=== PATIENT | male | born 1935 | race Caucasian/White ===

== ENCOUNTER → 2018-10-03 | Outpatient (CLI) | payer OTHER ==
--- NOTE | 2018-10-03 10:47 | 2DMMODE ---
[facility] [place] [address] 2 D/M-MODE ECHOCARDIOGRAM Name: AG LARSON Room #: REG [facility]#: [id number] ������������� Admission: 10/03/18 ������������� Attend Phys: Gideon Garay Discharge: ��� ������������� ��� Date of : 37 Date of Service: 10/03/18 1047 �� Report #: [id number] �������� ��������������������������������������������[id number] THIS REPORT FOR: //name// APPROVED REPORT Study performed: 10/03/2018 10:08:00 EXAM: Comprehensive 2D, Doppler, and color-flow Echocardiogram Patient Location: Out-Patient Status: routine BSA: 2.02 HR: 82 bpm BP: 166/83 mmHg Rhythm: Atrial Fibrillation Other Information Study Quality: AdequateGood Indications Murmur Atrial Fibrillation 2D Dimensions RVDd: 43.08 mm IVSd: 12.13 (7-11mm) LVOT Diam: 20.74 (18-24mm) LVDd: 45.02 mm PWd: 10.65 (7-11mm) Ascending Ao: 39.89 (22-36mm) LVDs: 29.67 (25-40mm) Aortic Root: 39.26 mm Volumes Left Atrial Volume (Systole) Single Plane 4CH: 118.52 mL Single Plane 2CH: 110.48 mL LA ESV Index: 60.00 mL/m2 Aortic Valve AoV Peak Isai.: 1.98 m/s AO Peak Gr.: 15.69 mmHg LVOT Max P.78 mmHg LVOT Max V: 1.48 m/s TON Vmax: 2.52 cm2 Mitral Valve MV Decel. Time: 236.30 ms MV E Max Isai.: 1.22 m/s [facility] [address] [address] 2 D/M-MODE ECHOCARDIOGRAM Name: AG LARSON Room #: [facility]#: [id number] ������������� Admission: 10/03/18 ������������� Attend Phys: Gideon Garay Discharge: ��� ������������� ��� Date of : 37 Date of Service: 10/03/18 1047 �� Report #: [id number] �������� ��������������������������������������������[id number] Pulmonary Valve PV Peak Isai.: 1.45 m/s PV Peak Gr.: 8.44 mmHg Tricuspid Valve TR Peak Isai.: 2.97 m/s RAP Estimate: 5.00 mmHg TR Peak Gr.: 35.49 mmHg PA Pressure: 40.00 mmHg Left Ventricle The left ventricle is normal size. There is normal LV segmental wall motion. Mild basal septal hypertrophy is present. Left ventricular systolic function is normal. LVEF is 60-65%. This study is not technically sufficient to allow evaluation of the LV diastolic function due to atrial fibrillation. Right Ventricle The right ventricle is normal size. The right ventricular systolic function is normal. Atria Left atrium is severely dilated. Right atrium is moderately dilated. Aortic Valve Aortic valve leaflets are thickened and calcified. No aortic regurgitation is present. There is no aortic valvular stenosis. Mitral Valve The mitral valve is normal in structure. Mild mitral regurgitation. Tricuspid Valve The tricuspid valve is normal in structure. Moderate tricuspid regurgitation. Estimated PAP is 40-45mmHg. Pulmonic Valve The pulmonary valve is normal in structure. There is no pulmonic valvular regurgitation. Great Vessels Aortic root is mildly dilated. The ascending aorta is mildly dilated. IVC is normal in size and collapses >50% with inspiration. [facility] [place] [address] 2 D/M-MODE ECHOCARDIOGRAM Name: AG LARSON Room #: REG [facility]#: [id number] ������������� Admission: 10/03/18 ������������� Attend Phys: Gideon Garay Discharge: ��� ������������� ��� Date of : 37 Date of Service: 10/03/18 1047 �� Report #: [id number] �������� ��������������������������������������������[id number] Pericardium There is no pericardial effusion. <Conclusion> The left ventricle is normal size. LVEF is 60-65%. Left atrium is severely dilated. Right atrium is moderately dilated. Aortic valve leaflets are thickened and calcified. The mitral valve is normal in structure. Mild mitral regurgitation. The tricuspid valve is normal in structure. Moderate tricuspid regurgitation. Estimated PAP is 40-45mmHg. The pulmonary valve is normal in structure. The ascending aorta is mildly dilated. Aortic root is mildly dilated. There is no pericardial effusion. ��������������������������������������������� <ELECTRONICALLY SIGNED> ���������������������������������������� By: Gideon Leal MD ��������������������������������������������� 10/03/18 1047 1047 1047 Gideon Leal MD /INF
== END ==
LOC: NUC 06:29
DX: I08.3 Combined rheumatic disorders of mitral, aortic and tricuspid valves (principal); I11.0 Hypertensive heart disease with heart failure; I50.9 Heart failure, unspecified; I48.91 Unspecified atrial fibrillation; Z79.899 Other long term (current) drug therapy

== ENCOUNTER 2018-10-12 07:16 | Observation (INO) | payer OTHER ==
[~2018-10-12] VITALS: Ht 167.6 cm; Wt 95.3 kg
[2018-10-12] VITALS (16 sets, daily range): BP systolic 103–179; BP diastolic 44–90
[2018-10-12 08:02] LABS: HEMOGLOBIN 11.5 gm/dL (14.0-18.0); MCH 31.5 pg (26.0-34.0); MCHC 33.7 g/dL (28.0-37.0); MCV 93.3 fL (80.0-100.0); RBC 3.64 mil/uL (4.50-6.00); RDW 15.1 % (10.5-14.5); WBC 6.5 thou/uL (4.0-11.0)
[2018-10-12] MEDS ORDERED: FELODIPINE ER10 MG PO (08:11)
[2018-10-12] MEDS ORDERED: ELIQUIS2.5 MG PO (08:11)
[2018-10-12] MEDS ORDERED: ATIVAN1 MG PO (08:12)
[2018-10-12] MEDS ORDERED: LOSARTAN-HCTZ1 EAC3 PO (08:12)
[2018-10-12] MEDS ORDERED: TOPROL XL25 MG PO (08:13)
[2018-10-12] MEDS ORDERED: HYTRIN 2MG CAPSU2 M1 PO (08:13)
[2018-10-12 08:31] LABS: CALCIUM 8.9 mg/dL (8.5-10.1); CREATININE 1.5 mg/dL (0.7-1.3); POTASSIUM 3.4 mmol/L (3.5-5.1)
--- NOTE | 2018-10-12 17:32 | NUR ---
PT ADMITED FROM [facility]. ADMISSION HX AND ASSESSMENT COMPLETED. VSS. DENIES HAVING PAIN OR DISCOMFORT. RIGHT GROIN INCISION C/D/I. NO HEMATOMA NOTED. WILL CONTINUE TO MONITOR.
[2018-10-13 00:01] VITALS: BP 155/44
[2018-10-13 03:28] VITALS: BP 147/79
--- NOTE | 2018-10-13 03:32 | NUR ---
RECEIVED PT'S CARE AT 0; PT. SITTING ON CHAIR; AOX4; REQUESTED TO GO TO BED AROUND 2029; NO C/O PAIN; DURING ASSESSMENT PT. C/O HEADACHE; REQUESTED PRN SLEEP MEDICATION; PHYSICIAN NOTIFIED; ORDERS RECEIVED; R. GROIN AREA DRY; INTACT; NO HEMATOMA; ABLE TO AMBULATE TO RESTROOM; ABLE TO REST THROUGH THE NIGHT; VS WNL; ASSESSMENT CHARGED; FOLLOWING POC; WILL PASS ON REPORT.
[2018-10-13 04:00] VITALS: BP 147/79
[2018-10-13 07:10] VITALS: BP 177/75
[2018-10-13] MEDS ORDERED: BRILINTA90 MG PO (09:39)
[2018-10-13] MEDS ORDERED: ASPIR 8181 MG PO (09:39)
[2018-10-13] MEDS ORDERED: CRESTOR40 MG PO (09:51)
[2018-10-13] MEDS ORDERED: NITROSTAT0.4 M1 SUBLING (09:53)
[2018-10-13] MEDS ORDERED: ELIQUIS2.5 MG PO (09:54)
[2018-10-13 11:25] VITALS: BP 144/80
[2018-10-13 12:53] VITALS: BP 144/80
--- NOTE | 2018-10-13 16:49 | NUR ---
ASSUMED CARE OF PATIENT AT 0700. PATIENT IS A&O X 4. PATIENT HAS RIGHT GROIN SITE WHICH DOES NOT HAVE ANY EDEMA, ECCHYMOSIS OR HEMATOMA. PATIENT DENIES ANY DISCOMFORT AT SITE. PATIENT'S SON IS AT THE BEDSIDE AND TAKING HIM HOME TODAY. PATIENT STATES THAT HE FEELS BETTER THAN HE DID WHEN HE ARRIVED. DR. ALMEIDA DISCHARGED PATIENT. IV AND TELE REMOVED. AT DISCHARGE, PATIENT'S RIGHT GROIN SITE REMAINS TO NOT HAVE ANY EDEMA, ECCHYMOSIS OR HEMATOMA. PATIENT TAKEN OUT BY WHEELCHAIR AND DRIVEN HOME BY HIS SON.
--- NOTE | 2018-10-13 18:36 | EKG ---
[address] [address] ELECTROCARDIOGRAM REPORT Name: NEOAG Richard Room #: 203-P [facility]#: [id number] ������������������ Admission: 10/12/18 ������������������ Attend Phys: Gideon Leal Discharge: 10/13/18 ������������������ Date of : 37 Report #: [id number] ����������������������������������������������������������������� [id number] THIS REPORT FOR: //name// [facility] Test Date: 2018-10-12 Test Time: 07:45:00 Pat Name: AG LARSON Department: Room: [facility] Gender: M Strong Nitric Operator: Femi COATS : 1935 Requested By: Gideon Leal Order Number: [id number] MD: Gideon Leal Measurements Intervals [place] Rate: 73 P: AL: QRS: -2 QRSD: 101 T: 49 QT: 409 QTc: 451 Interpretive Statements Atrial fibrillation Nonspecific ST-T wave changes Voltage criteria for LVH No previous ECG available for comparison Electronically Signed On 10-13-2018 18:36:09 CDT by Gideon Leal [email or web address] ��������������������������������������������� <ELECTRONICALLY SIGNED> ���������������������������������������� By: Gideon Leal MD ��������������������������������������������� 10/13/18 1836 Gideon Leal MD /EPI
--- NOTE | 2018-10-29 14:48 | CATHLAB ---
[facility] [place] [address] INVASIVE PROCEDURE REPORT Name: AG LARSON Jose Manuel Room #: 203-P [facility]#: [id number] ������������� Admission: 10/12/18 ������������� Attend Phys: Gideon Garay Discharge: ��� 10/13/18 ������������� ��� Date of : 37 Date of Service: 10/29/18 1448 �� Report #: [id number] �������� ��������������������������������������������[id number] THIS REPORT FOR: //name// APPROVED REPORT Study performed: 10/12/2018 10:38:26 Patient Details The patient is a 83 year-old male Event Personnel Gideon Leal Lap Winding Machine Operator, Jayla Menjivar RN RN, Olga Salinas RTR, YANE Scrjessica, Sharita Mack Monitor Procedures Performed Left Heart Cath w/or w/o Coronaries [id number] [facility] Place w/wo Plasty Single LAD [id number] supervision of conscious sedation Indication Positive stress test, Chest pain Procedure Narrative The Right Groin^ was infiltrated with 1% Lidocaine subcutaneous anesthesia. A PINNACLE 4FR Sheath #[id number] sheath was inserted into the RFA^. Coronary angiography was performed using coronary diagnostic catheters. The right coronary system was accessed and visualized with a JR4 catheter. The left coronary system was accessed and visualized with a JL5 catheter. The left ventricle was accessed and visualized with a PIGTAIL catheter. Left ventriculogram was performed in [place] projection. Closure device was deployed with a Fr MYNXGRIP 6/7F #[id number]. The patient tolerated the procedure well and there were no complications associated with the procedure. There was no hematoma. Intraoperative Conscious Sedation Sedation start time: 1204 Case end Time: 1304 Versed 3 mg Fluoro Time: 10.55 minutes Dose: DAP 17932.60 cGycm2 2438 mGy Contrast Type and Amount: Omnipaque 155 ml [facility] [place] [address] INVASIVE PROCEDURE REPORT Name: AG LARSON Room #: 203-P [facility] [place] ..#: [id number] ������������� Admission: 10/12/18 ������������� Attend Phys: Gideon Garay Discharge: ��� 10/13/18 ������������� ��� Date of : 37 Date of Service: 10/29/18 1448 �� Report #: [id number] �������� ��������������������������������������������[id number] Coronary Angiography The patient's coronary anatomy is right dominant. Diagnostic Cath Left Main Monitor large-caliber vessel of normal origin. Less than 30% irregularities are noted concentrically. Bifurcates left anterior descending left circumflex free of high-grade disease LAD Moderate caliber type III vesse coursing the anterior interventricular sulcus. The proximal portion there is a irregularities of less than 50% after the first septal environmental geologist and diagonal branch origin the vessel continues with lower irregularities until his mid course with is an eccentric high-grade lesion. The vessel appears to be between 1.5 and 2.25 mm diameter. Then continues on with a subsequent reason of narrowing at a much smaller caliber as it proceeds to the apex and terminates and posterior aspect of the left ventricle. L Diagonal 1 Small caliber Circumflex Moderate caliber nondominant vessel proceeds in the AV groove worry gets to a first marginal branches first marginal branch has a 40% proximal lesion and tortuous course along the lateral aspect of the left ventricle. The circumflex proper then continues on giving rise to a second marginal branch which is less than 1.5 mm in diameter and has a high-grade proximal lesion. The circumflex then terminates in the posterior wall branches artery to the posterior apical region. Right Coronary Moderate caliber vessel courses in AV groove where at the acute margin is a 50-60% eccentric lesion. This area is heavily calcified and 8 RV marginal branch arises. The vessel then reconstitutes itself continued postoperatively to the crux of the heart where posterior descending artery originates which is small to moderate in caliber. The proximal third is appears to be a 60% eccentric lesion for which flowed is not to be impeded. It continues on to see apex. The distal right coronary consists of a smaller caliber posterolateral wall branch and artery to the AV Left Ventriculography The left ventricle is normal in size with normal contractility. The left ventricular ejection fraction is estimated to be >65%. Hemodynamics The aortic pressure is 179/81 mmHg with a mean of 57 mmHg. The left ventricular pressure is 149/13 mmHg with a mean of mmHg. The left ventricular end diastolic pressure is 28 mmHg. PCI Technique [facility] [address] [place] [address] INVASIVE PROCEDURE REPORT Name: AG LARSON Room #: 203-P [facility]#: [id number] ������������� Admission: 10/12/18 ������������� Attend Phys: Gideon Garay Discharge: ��� 10/13/18 ������������� ��� Date of : 37 Date of Service: 10/29/18 1448 �� Report #: [id number] �������� ��������������������������������������������[id number] Following angiography the patient stated he did not want aortocoronary bypass grafting under any circumstances in view of this percutaneous taoism of the left anterior descending artery ensued. System was exchanged and upsized for standard 5 Albanian system. A Karel left guide catheter was then engaged with a left coronary ostium and guiding pictures obtained. A standard 0.014 wire was then advanced into the distal LAD looking the apex and landing the posterior inferoapical region of the left anterior descending artery. Subsequent to this the initial EVAN 2.0 mm stent was positioned and deployed. The specifics are noted in the monitoring documentation. Attention was turned to a more proximal region of stenosis or a 2.5 mm long stent was then positioned and deployed without difficulty. Optimalization of deployment was then carried forth. No loss of side branch distal embolization or intraluminal thrombus is present. Moderate (50% to 60%) lesions were noted proximal to the stent deployment but felt nonflow limiting and not intervene. Patient tolerated procedure well and there were no complications. PCI Technique Lesion Percutaneous coronary intervention was performed on the mid left anterior descending artery segment. A LAUNCHER 6FR JL4 #[id number] Guide Catheter was used to engage the ostium. A Luge Wire .014 x 182CM #[id number] Interventional Guidewire was used to cross the lesion. STENT DEPLOYMENT A stent RESOLUTE JALIL OTW 2.0 X 15 #[id number] was inserted and inflated up to 12.00atm for 13seconds. PCI Technique Lesion 2 A LAUNCHER 6FR JL4 #[id number] Guide Catheter was used to engage the ostium. Stent Deployment A stent RESOLUTE JALIL OTW 2.25 X 22 #[id number] was inserted and inflated up to 12atm for 8seconds. Additional Inflation: 16atm for 9seconds. Additional Inflation: 12atm for 8seconds. Conclusion 1. Coronary artery disease, multivessel, high-grade left anterior descending artery 2. Abnormal hemodynamics with elevated liver ventricular end-diastolic pressures 3. Successful percutaneous revascularization of the mid and distal mid left anterior descending artery with 2 separate EVAN stents as noted in the monitoring documentation [facility] [address] [place] [address] INVASIVE PROCEDURE REPORT Name: AG LARSON Room #: 203-P [facility]#: [id number] ������������� Admission: 10/12/18 ������������� Attend Phys: Gideon Garay Discharge: ��� 10/13/18 ������������� ��� Date of : 37 Date of Service: 10/29/18 1448 �� Report #: [id number] �������� ��������������������������������������������[id number] Recommendations Cardiac Risk Reduction Program Aggressive Medical Therapy Medications Administered Ticagrelor ��������������������������������������������� <ELECTRONICALLY SIGNED> ���������������������������������������� By: Gideon Leal MD ��������������������������������������������� 10/29/18 1448 1448 47 Gideon Leal MD /INF
== END 2018-10-13 13:26 | disposition home or self-care (01) ==
LOC: CATH 07:16 → 2N 13:50 → CATH 15:33 → 2N 10-13 13:26
PROVIDERS: ADMIT Internal Medicine
DX: I25.119 Atherosclerotic heart disease of native coronary artery with unspecified angina pectoris (principal); I48.91 Unspecified atrial fibrillation; I10 Essential (primary) hypertension; Z86.73 Personal history of transient ischemic attack (TIA), and cerebral infarction without residual deficits; Z79.899 Other long term (current) drug therapy